=== PATIENT | female | born 2000 | race African-American/Black ===

== ENCOUNTER 2023-08-24 12:46 | Outpatient (REF) | payer OTHER, SELFPAY ==
--- NOTE | ~2023-08-24 | MR_ITS ---
EXAMINATION: MR BRAIN WITHOUT CONTRAST CLINICAL INFORMATION: Daily left-sided headaches COMPARISON: None TECHNIQUE: Multiplanar multisequence MR imaging of the brain was obtained without intravenous contrast. FINDINGS: There is no acute infarct on diffusion-weighted imaging. There is no intracranial hemorrhage on iron-sensitive imaging. No extra-axial collection or mass effect/herniation. Normal parenchymal signal characteristics. No hydrocephalus. The ventricles are normal in morphology and size. The major flow voids at the skull base are preserved. The midline structures are normal. The cerebellar tonsils are normally positioned. The craniocervical junction is normal. Marrow signal is within normal limits. The visualized soft tissues are without significant abnormality. Trace ethmoid and maxillary sinus mucosal thickening. MR/MR head/brain wo con IMPRESSION: Unremarkable noncontrast MRI of the brain.
== END 2023-08-24 12:47 | disposition home or self-care (01) ==
LOC: HO.MRI 12:46
PROVIDERS: PCP Family Medicine; Visit Provider Family Medicine
DX: R51.9 Headache, unspecified (principal)
CPT/HCPCS: 70551